=== PATIENT | male | born 1995 | race Two or more races ===

== ENCOUNTER 2017-06-16 08:16 | Inpatient (IN) | payer MEDICAID ==
[~2017-06-16] VITALS: Ht 165.1 cm; Wt 69.4 kg
[2017-06-16] MEDS ORDERED: LORAZEPAM INJ 2 MG/ML VIAL ONE ×3 (08:30→10:30)
[2017-06-16 08:58] LABS: BASOPHILS % (AUTO) 0.3 % (0.0-2.0); HEMATOCRIT 49 % (39-51); HEMOGLOBIN 16.9 g/dL (13.5-17.5); LYMPHOCYTES # (AUTO) 1.4 /CMM (0.8-4.8); LYMPHOCYTES % (AUTO) 13.5 % (20.0-44.0); MEAN CORPUSCULAR HEMOGLOBIN 32 PG (26.0-33.0); MEAN CORPUSCULAR HGB CONC 35 g/dl (31.0-36.0); MEAN CORPUSCULAR VOLUME 92 fL (80-96); MONOCYTES # (AUTO) 0.5 /CMM (0.1-1.30); MONOCYTES % (AUTO) 4.5 % (2.0-12.0); NEUTROPHILS # (AUTO) 8.4 /CMM (1.8-8.9); NEUTROPHILS % (AUTO) 81.7 % (43.0-81.0); PLATELET COUNT (AUTO) 332 /CMM (150-450); RDW COEFFICIENT OF VARIATION 13.6 (11.5-15.0); RED BLOOD CELL COUNT(AUTO) 5.25 MIL/uL (4.5-6.0); WHITE BLOOD COUNT (AUTO) 10.3 K/uL (4.3-11.0)
[2017-06-16] MEDS ORDERED: LORAZEPAM INJ 2 MG/ML VIAL IV ONE ×3 (09:00→11:30)
[2017-06-16] MEDS ORDERED: IV NS 0.9% 1,000 ML BAG IV ONE (09:00)
[2017-06-16 09:08] LABS: CALCIUM, SERUM 9.1 mg/dL (8.5-10.1); CARBON DIOXIDE 20 mmol/L (21-32); CHLORIDE 104 mmol/L (98-107); CREATININE 1.2 mg/dL (0.6-1.3); GLUCOSE 209 mg/dL (74-106); POTASSIUM 3.5 mmol/L (3.5-5.1); SODIUM SERUM 142 mmol/L (136-145); UREA NITROGEN, BLOOD 11 mg/dL (7-18)
[2017-06-16 09:17] LABS: TROPONIN I < 0.017 ng/mL (0.00-0.056)
[2017-06-16] MEDS ORDERED: DILTIAZEM HCL 25 MG IV ONE ×2 (11:41→13:05)
[2017-06-16] MEDS ORDERED: DILTIAZEM HCL 50 MG IV IV ONE (12:00)
[2017-06-16] MEDS ORDERED: DILTIAZEM HCL 25 MG IV IV ONE (13:00)
[2017-06-16 13:11] VITALS: BP 151/84
[2017-06-16] MEDS ORDERED: IV NS 0.9% 1,000 ML IV PRN (13:41)
[2017-06-16] MEDS ORDERED: ONDANSETRON HCL/PF 4 MG/2 ML VIAL IVP PRN (14:00)
[2017-06-16] MEDS ORDERED: MAGNESIUM HYDROXIDE 30 ML UDC PO PRN (14:00)
[2017-06-16] MEDS ORDERED: ACETAMINOPHEN 325 MG TABLET PO PRN (14:00)
[2017-06-16] MEDS ORDERED: MAG HYDROX/AL HYDROX/SIMETH 30 ML UDC PO PRN (14:00)
[2017-06-17] MEDS ORDERED: PANTOPRAZOLE 40 MG TABLET.DR PO SCH (07:30)
== END 2017-06-16 14:59 | disposition left against medical advice (07) | DRG 201 ==
LOC: ER 08:18 → EDBD 13:41 → TELE1 13:41
DX: R00.0 Tachycardia, unspecified (principal); F14.10 Cocaine abuse, uncomplicated; R00.2 Palpitations
CPT/HCPCS: 36415; 71045-TC; 80048-TC; 84484-TC; 85025-TC; 87081-TC; A4606; J2060; J3490; Z7610